=== PATIENT | male | born 1970 | race Caucasian/White ===

== ENCOUNTER 2017-03-05 10:40 | Observation (INO) | payer OTHER ==
[~2017-03-05] VITALS: Ht 180.3 cm; Wt 100.8 kg
--- NOTE | ~2017-03-05 | DS ---
PATIENT'S NAME: [facility] AGE: 46 Y [address] ROOM: [place] [address] LOCATION: [facility] – [place] ADMIT DATE: 03/05/2017 Discharge Summary DISCHARGE DATE: 03/06/2017 FAMILY PHYSICIAN: Malik Dozier MD ATTENDING PHYSICIAN: Malik Dozier FINAL DIAGNOSIS: 1. Acute febrile illness, probably viral etiology. 2. Abdominal pain, resolved, probably viral gastroenteritis. 3. Hypertension, essential, present on admission, stable. HOSPITAL COURSE: The patient was admitted to the hospital. DICTATION ENDS HERE MALIK DOZIER MD BALL HOLDER/modl /[id number] d: 03/06/17 1009 t: 03/27/17 1731, DISCHARGE SUMMARY
--- NOTE | ~2017-03-05 | DS ---
PATIENT'S NAME: STEPHANIE GRACIA [facility] AGE: 46 Y [address] ROOM: [address] [place] [address] LOCATION: [facility] [place] ADMIT DATE: 03/05/2017 Discharge Summary DISCHARGE DATE: 03/06/2017 FAMILY PHYSICIAN: Malik Dozier MD ATTENDING PHYSICIAN: Malik Dozier CONTINUATION: HOSPITAL COURSE: The patient was admitted to the hospital for a persistent temperature of 101 to 102. He also had some upper abdominal pain and nausea. After admission, his lab was checked. His urine check was unremarkable. Followup culture negative. His blood culture negative. CBC and chemistry panel normal. His CAT scan of the abdomen showed possible small bowel ileus, but no other complicating feature. The patient still got a low-grade fever of 100.4 before he goes home today on the day of dismissal, but otherwise feels well. He has today no nausea, no vomiting, no chest pain, no shortness of breath. Note that his chest x-ray was normal also. He is dismissed to continue his Avapro at home and see me in a couple of days, and further treatment will be as indicated. MALIK DOZIER MD FINE SANDER/modl /[id number] d: 03/06/17 1807 t: 03/27/17 1734, DISCHARGE SUMMARY
[2017-03-05] MEDS ORDERED: AVAPRO300 MG PO (12:39)
[2017-03-05] MEDS ORDERED: ADVIL200 MG PO (12:40)
[2017-03-05 13:22] LABS: BILIRUBIN URINE NEGATIVE (NEGATIVE); BLOOD URINE NEGATIVE /UL (NEGATIVE); COLOR URINE YELLOW (YELLOW); GLUCOSE URINE NEGATIVE (NEGATIVE); KETONE URINE 5 mg/dL (NEGATIVE); LEUKOCYTES URINE NEGATIVE /UL (NEGATIVE); NITRITE URINE NEGATIVE (NEGATIVE); PROTEIN URINE NEGATIVE (NEGATIVE); SPEC GRAVITY URINE 1.025 (1.003-1.035); TURBIDITY URINE CLEAR (CLEAR); UROBILINOGEN URINE NORMAL (NORMAL)
[2017-03-05 15:03] LABS: BASOPHIL % 0.3 %; EOSINOPHIL % 0.3 %; HEMATOCRIT 42.8 % (37.0-53.0); HEMOGLOBIN 15.3 g/dL (12.0-17.0); IMMATURE GRANULOCYTE # 0.1 K/uL (0.0-0.3); IMMATURE GRANULOCYTE % 0.5 %; LYMPHOCYTE # 2.5 K/uL (0.8-4.0); LYMPHOCYTE % 21.5 %; MCH 31.1 pg (27.0-34.0); MCHC 35.7 gm/dL (32.0-36.5); MONOCYTE # 1.2 K/uL (0.0-1.0); MONOCYTE % 10.7 %; MPV 10.5 fl (9.4-12.4); NEUTROPHIL # (ANC) 7.7 K/uL (1.4-9.0); NEUTROPHIL % 66.7 %; NRBC % 0 /100WBC (0-0.00); PLATELET COUNT 167 K/uL (150-450); RBC 4.92 M/uL (4.00-6.00); RDW-CV 11.9 % (11.9-14.6); WBC 11.5 K/uL (4.0-11.0)
[2017-03-05 15:23] LABS: ALBUMIN 3.5 gm/dL (3.5-5.0); ALK PHOS 82 IU/L (33-138); ALT 21 IU/L (12-78); ANION GAP 12.5 (10.0-19.0); AST 8 IU/L (10-40); BLOOD UREA NITROGEN 15 mg/dL (6-24); CALCIUM 8.2 mg/dL (8.5-10.5); CHLORIDE 99 mMol/L (96-110); CO2 24 mMol/L (22-32); POTASSIUM 3.5 mMol/L (3.7-5.1); SODIUM 132 mMol/L (135-145); TOTAL BILIRUBIN 0.8 mg/dL (0.0-1.5); TOTAL PROTEIN 6.8 g/dL (6.0-8.4)
[2017-03-05 15:33] LABS: ESTIMATED GFR (MDRD EQUATION) > 60
--- NOTE | 2017-03-05 17:27 | NUR ---
Significant Event: Patient up to floor around 1140. Denies pain/nausea at this time. Up with standby assist. Antibiotic started, with IV fluids. Pneumatics on for DVT prophylaxis. Patient has been down for CT scan and 2 view chest xray. Is able to have a regular diet since coming back from tests. IV to left anterior forearm intact and patent. Follow up: Continue to monitor.
--- NOTE | 2017-03-06 02:38 | NUR ---
Significant Event: PATIENT IS ALERT AND ORIENTED. UP AD SONJA. DENIES PAIN OR DISCOMFORT. FEVER OF 100.7 AT 0100. TYLENOL ADMINISTERED. TEMP AT 0230 WAS 99.0. NS INFUISNG AT 125/HR. POSSIBILITY TO GO HOME TODAY. LAST BM 03/05. Follow up:
--- NOTE | 2017-03-06 05:11 | NUR ---
0500: HEPARIN DRIP TURNED OFF ORDERED FOR PROCEDURE THIS A.M.
[2017-03-06 06:06] LABS: ALBUMIN 3.1 gm/dL (3.5-5.0); ANION GAP 10.7 (10.0-19.0); BLOOD UREA NITROGEN 12 mg/dL (6-24); CALCIUM 7.8 mg/dL (8.5-10.5); CHLORIDE 106 mMol/L (96-110); CO2 24 mMol/L (22-32); ESTIMATED GFR (MDRD EQUATION) > 60; PHOSPHORUS 3.8 mg/dL (2.5-4.9); POTASSIUM 3.7 mMol/L (3.7-5.1); SODIUM 137 mMol/L (135-145)
--- NOTE | 2017-03-06 09:00 | NUR ---
DISCHARGE: D: ORDERS RECEIVED FOR THE PATIENT TO BE DISCHARGED TO HOME TODAY. I: DISMISSAL INSTRUCTIONS WERE PREPARED AND REVIEWED WITH THE PATIENT VIRTUALLY. THE FOLLOWING INFORMATION WAS DISCUSSED INCLUDING OZ TEACHING SHEETS PROVIDED: ABDOMINAL PAIN, PREVENTING DVT AND WEST NILE VIRUS. REVIEWED FOLLOW UP APPOINTMENT WITH DR. DOZIER ON SATURDAY AT 0900 AND NO NEW PRESCRIPTIONS. R: THE PATIENT VERBALIZED UNDERSTANDING OF THE DISMISSAL EDUCATION AT THE TIME OF TEACHING WITH NO FURTHER QUESTIONS. P: THE ABOVE INFORMATION WAS SHARED WITH THE PRIMARY NURSE AND THE CHARGE NURSE THAT THE PATIENT EDUCATIONAL WAS COMPLETED. THE PATIENT IS READY FOR DISCHARGE TO THE [facility]. [employer] IS WALKING THE PATIENT TO THE [facility] AT THIS TIME.
== END 2017-03-06 09:20 | disposition disaster alternative care site (69) ==
LOC: EDSTATUS 10:40 → GMSU 10:55
PROVIDERS: ADMIT Family Medicine
DX: R50.9 Fever, unspecified (principal); I10 Essential (primary) hypertension; R10.13 Epigastric pain; Z98.890 Other specified postprocedural states; F17.210 Nicotine dependence, cigarettes, uncomplicated; G43.A0 Cyclical vomiting, in migraine, not intractable; Z88.2 Allergy status to sulfonamides
CPT/HCPCS: G0378; G0379; J0696; J7030; J7040